=== PATIENT | male | born 1960 | race Caucasian/White ===

== ENCOUNTER → 2016-06-17 08:02 | Outpatient (CLI) | payer OTHER ==
[2015-02-22 14:54] VITALS: BMI 33.6
[~2016-06-17 08:02] MED LIST: ALDACTONE100 MG PO; ASPIRIN EC81 M1 PO; LANOXIN250 MCG PO; LASIX20 MG PO; LISINOPRIL5 MG PO; METOPROLOL TART50 MG PO; MIRALAX17 GM PO; TIAZAC/CARDIZE180 MG PO
== END | disposition home or self-care (01) ==
LOC: D.US 08:02
DX: K70.2 Alcoholic fibrosis and sclerosis of liver (principal)

== ENCOUNTER 2017-04-25 00:22 | Observation (INO) | payer OTHER ==
[~2017-04-25] VITALS: Ht 185.4 cm; Wt 112.8 kg
--- NOTE | ~2017-04-25 | HEMODYNAMI ---
PATIENT:JADA STEPHENS MEDICAL RECORD: [id number] : 56 [id number] ADMISSION DATE: 04/25/17 Generatedon:04/25/201710:14 Patient name: JADA STEPHENS Patient #: [id number] SSN: : 1960 Date of study: 04/25/2017 Page: Of Hemodynamic Procedure Report Patient Data Patient Demographics Procedure consent was obtained First Name: JADA Gender: Male Last Name: ANGELO : 1960 Middle Initial: M Age: 57 year(s) Patient #: [id number] Race: Unknown Additional ID: [id number] Contact details Address: [address] [place] [address] State: [place] City: [facility] Zip code: [address] Past Medical History Allergies: No known allergies Admission Admission Data Admission Date: 04/25/2017 Admission Time: 1:55 Room #: 2123 Height (in.): 70 BSA: 2.29 (m2) Height (cm.): 177.8 BMI: 35.87 (kg/m2) Weight (lbs.): 250 Weight (kg.): 113.4 Lab Results Lab Result Date: 04/25/2017 Lab Result Time: 4:52 Biochemistry Name Units Result Min Max BUN mg/dl 21 --(----)-* 7 18 Creatinine mg/dl 1 --(--*-)-- 0.6 1.3 CBC Name Units Result Min Max Hematocrit % 47.3 --(-*--)-- 42 54 Hemoglobin g/dl 16.2 --(--*-)-- 13.5 17.5 Procedure Procedure Types Cath Procedure Diagnostic Procedure [facility] w/Coronaries Miscellaneous Procedures Moderate Sedation up to 30 minutes Procedure Description Procedure Date Procedure Date: 04/25/2017 Procedure Start Time: 9:53 Procedure End Time: 10:13 Procedure Staff Name Function Irvin Smith MD Performing Physician Brian Camarena RT Scrub Jonah Salmon RN Nurse Ozzy Pennington RT Monitor Procedure Data Cath Procedure Fluoroscopy Diagnostic fluoroscopy Total fluoroscopy Time: 3.1 time: 3.1 min min Diagnostic fluoroscopy Total fluoroscopy dose: 965 dose: 965 mGy mGy Contrast Material Contrast Material Type Amount (ml) Isovue 300 87 Entry Location Entry Primary Successful Side Size Upsize Upsize Entry Closure Succes sful Closure Location (Fr) 1 (Fr) 2 (Fr) Remarks Device Remarks Femoral Right 5 Fr Exoseal artery Estimated blood loss: 10 ml Diagnostic catheters Device Type Used For End Catheter Placement Cordis 5Fr JL 4.0 Procedure Catheter (MP) Diagnostic Infinity 5Fr Procedure JL 5 catheter Cordis 5Fr 3DRC Catheter Procedure (MP) Cordis 5Fr Pigtail Procedure Catheter (MP) Procedure Complications No complications Procedure Medications Medication Administration Route Dosage Oxygen NC 2 l/min Heparin Flush Bag added to field 2 bags (1000units/500ml NS) 0.9% NaCl I.V. 100 ml/hr Versed I.V. 2 mg Hemodynamics Rest BSA: 2.29 (m2) HGB: 16.2 (g/dl) O2 Consumption: Estimated: 292.13 (ml/min) O2 Co nsumption indexed: Estimated:127.57 (ml/min/m) Heart Rate: 96 (bpm) Pressure Samples Time Site Value (mmHg) Purpose Heart Use Rate(bpm) 10:06 LV 118/16,16 EDP 110 10:06 LV 103/15,18 Snapshot 99 Gradients Valve Time Site Site Mean SEP/DFP Peak To Heart Use 1 2 (mmHg) (sec/min) Peak Rate (mmHg) (bpm) Aortic 10:07 LV AO 102 Snapshots Pre Cath Intra NCS Post Cath Vital Signs Time Heart Resp SPO2 etCO2 NIBP Rhythm Pain Sedation Rate (ipm) (%) (mmHg) (mmHg) Status Level (bpm) 9:35:32 107 18 96 37.1 112/74(98) NSR 0 (11) 10(A) , No pain 9:40:07 96 16 98 17.4 106/71(89) NSR 0 (11) 10(A) , No pain 9:44:37 92 16 99 38.5 116/76(88) NSR 0 (11) 10(A) , No pain 9:49:12 115 17 99 32.5 114/73(85) NSR 0 (11) 10(A) , No pain 9:53:46 107 17 96 42.3 105/68(95) NSR 0 (11) 9(A) , No pain 9:58:22 115 16 96 33.2 110/69(84) NSR 0 (11) 9(A) , No pain 10:02:55 90 17 98 33.2 124/69(83) NSR 0 (11) 9(A) , No pain 10:08:08 100 14 97 39 111/74(89) NSR 0 (11) 9(A) , No pain 10:11:43 101 19 100 30.2 117/67(84) NSR 0 (11) 9(A) , No pain Medications Time Medication Route Dose Verified Delivered Reason Notes Effect iveness by by 9:35:45 Oxygen NC 2 Irvin Jonah Per l/min Luis Salmon RN physician 9:35:55 Heparin Flush added 2 Irvin Jonah used for Bag to bags Luis Salmon RN procedure (1000units/500ml field NS) 9:36:03 0.9% NaCl I.V. 100 Irvin Jonah Per ml/hr Luis Salmon RN physician 9:50:50 Versed I.V. 2 mg Irvin Jonah for Luis Salmon RN sedation MD Procedure Log Time Note 9:15:35 Ozzy Pennington RT(R) sent for patient. Start room use. 9:26:35 Informed consent obtained and on chart 9:27:33 Diagnostic Cath status Elective 9:27:46 Time tracking: Call back 9:27:50 Plan of Care:Hemodynamics will remain stable., Cardiac rhythm will remain stable., Comfort level will be maintained., Respiratory function will remain adequate., Patient/ family verbilizes understanding of procedure., Procedure tolerated without complication., Recovers from procedure without complications.. 9:28:23 H&P Date Dictated: 04/25/2017 Within 30 days and on chart.. 9:29:13 Lab Result : Creatinine 1 mg/dl 9:29:13 Lab Result : BUN 21 mg/dl 9:29:13 Lab Result : Hemoglobin 16.2 g/dl 9:29:13 Lab Result : Hematocrit 47.3 % 9:29:17 Lab results completed and on chart. 9:29:22 Patient received from Med II to CCL 1 Alert and oriented. Tansferred to table in Supine position. 9:29:23 Warm blankets applied, and dada hugger turned on for patient comfort. 9:29:23 Correct patient and procedure confirmed by team. 9:29:24 ECG and BP/O2 sat monitors applied to patient. 9:29:25 Pre-procedure instructions explained to patient. 9:29:25 Pre-op teaching completed and patient verbalized understanding. 9:29:43 Patient allergic to No known allergies 9:34:44 Vital chart was started 9:35:45 Oxygen 2 l/min NC was administered by Jonah Salmon RN; Per physician; 9:35:55 Heparin Flush Bag (1000units/500ml NS) 2 bags added to field was administered by Jonah Salmon RN; used for procedure; 9:36:03 0.9% NaCl 100 ml/hr I.V. was administered by Jonah Salmon RN; Per physician; 9:37:02 Baseline sample Acquired. 9:37:08 Rhythm: atrial fibrillation 9:37:09 Full Disclosure recording started 9:37:13 Is the patient allergic to Iodine/contrast media? No. 9:37:15 Is patient on blood thinner?Yes 9:37:17 ACC The patient was administered the following blood thiners within the last 24 hours: ACCPlavix 9:37:20 Patient diabetic? No. 9:37:22 Previous problem with sedation/anesthesia? No ? 9:37:24 Snore? Yes 9:37:25 Sleep apnea? No 9:37:27 Deviated septum? No 9:37:28 Opens mouth fully? Yes 9:37:29 Sticks out tongue? Yes 9:37:30 Airway obstruction? No ? 9:37:33 Dentures? No ? 9:37:42 Pre procedure: right dorsailis pedis pulse 1+ Palpable, but thready & weak; easily obliterated 9:38:03 Unable to go radial due IV in right wrist. 9:38:10 IV patent on arrival in right wrist with 0.9% NaCl at KVO. 9:38:14 Right groin area was prepped with chlora-prep and draped in sterile fashion 9:38:15 Alarms reviewed by RKaveh NKaveh 9:38:16 Sharps counted by scrub and verified by R.N. 9:38:19 Use device set Femoral Dx 9:38:21 Tegaderm 4 x 4 opened to sterile field. 9:38:22 Acist Hand Control opened to sterile field. 9:38:23 Acist Manifold opened to sterile field. 9:38:24 Acist Syringe opened to sterile field. 9:38:25 Bag Decanter opened to sterile field. 9:38:25 Medline Cath Pack opened to sterile field. 9:38:25 Terumo 5Fr Mcgehee Sheath opened to sterile field. 9:38:26 St Neil 260cm J .035 wire opened to sterile field. 9:38:27 Diagnostic Infinity 5Fr Multipack catheter opened to sterile field. 9:38:40 Soccer Manager 4Fr Micropuncture ([id number]) opened to sterile field. 9:43:48 Physician paged 9:49:49 --------ALL STOP TIME OUT------ 9:49:50 Final Timeout: patient, procedure, and site verified with staff and physician. All members of the team are in agreement. 9:49:52 Right groin site verified by team. 9:49:56 Physical assessment completed. ASA score P 2 - A patient with mild systemic disease as per Irvin Smith MD. 9:50:01 Sedation plan: IV Moderate Sedation Versed, Fentanyl 9:50:50 Versed 2 mg I.V. was administered by Jonah Salmon RN; for sedation; 9:52:54 Procedure started. 9:53:00 Local anesthetic to right femoral artery with Lidocaine 2% by Irvin Smith MD.INITIAL ACCESS ONLY 9:54:47 Access obtained with 4Fr micropunture. 9:55:01 A 5 Fr sheath was inserted into the Right Femoral artery 9:55:58 A Cordis 5Fr JL 4.0 Catheter (JESSICA) was advanced over the wire and used for Procedure. 9:56:51 Catheter removed. unable to cannulate vessel. 9:57:04 A Diagnostic Infinity 5Fr JL 5 catheter was advanced over the wire and used for Procedure. 9:58:01 Patient Height : 70 inches 9:58:06 Patient Weight : 250 lbs 9:59:02 LCA angiography performed. 10:00:25 Catheter exchanged over wire. 10:01:46 A Cordis 5Fr 3DRC Catheter (MP) was advanced over the wire and used for Procedure. 10:02:24 RCA angiography performed. 10:04:33 DAVIS angiography performed. 10:04:36 Catheter exchanged over wire. 10:06:07 A Cordis 5Fr Pigtail Catheter (MP) was advanced over the wire and used for Procedure. 10:06:55 LV hemodynamics recorded. 10:06:59 LV angiography performed. 10:07:00 LV gram done using ROBERTS 10:07:04 Injector settings: Ml/sec: 12, Volume: 15, 10:07:26 EF : 35 % 10:07:33 Catheter removed. 10:07:44 Cordis 5Fr Exoseal opened to sterile field. 10:08:27 Sheath removed intact; hemostasis achieved with Exoseal to the Right Femoral artery. 10:08:30 Procedure ended.(Physican Out) 10:09:05 Fluoroscopy time 03.10 minutes. 10:09:10 Fluoroscopy dose: 965 mGy 10:09:10 Flurop Dose total: 965 10:10:17 Contrast amount:Isovue 300 87ml. 10:10:21 Sharps counted by scrub and verified by R.N. 10:10:25 Insertion/operative site no bleeding no hematoma. 10:10:27 Post-op/insertion site Right Femoral artery dressed using a 4 x 4 and Tegaderm. 10:10:31 Post Procedure Pulses reassessed and unchanged 10:10:34 Post-procedure physical assessment completed. ASA score P 2 - A patient with mild systemic disease as per Irvin Smith MD. 10:10:36 Post procedure rhythm: unchanged. 10:10:39 Estimated blood loss: 10 ml 10:10:41 Post procedure instruction explained to patient.Patient verbalizes understanding. 10:10:42 Patient needs reinforcement of post procedure teaching. 10:10:52 Procedure type changed to Cath procedure, Diagnostic procedure, LHC, LHC w/Coronaries, Miscellaneous Procedures, Moderate Sedation up to 30 minutes 10:10:54 Procedure and supply charges have been captured, reviewed, submitted and are correct. 10:10:58 Procedure Complication : No complications 10:13:12 Vital chart was stopped 10:13:13 See physician's report for complete and final results. 10:13:17 Report given to PCU. 10:13:21 Patient transfered to PCU with Bed. 10:13:24 Procedure ended. 10:13:24 Full Disclosure recording stopped 10:13:30 End room use (Document Last) Device Usage Item Name Manufacture Quantity Catalog Hospital Part Current Minimal Lot# / Number Charge Number Stock Stock Serial# Code Tegaderm 4 x 3M 1 [id number] 707272 297465 998174 5 4 Acist Hand Acist 1 48371 117650 616568 614331 5 Control [employer] Inc Acist Acist 1 19682 861609 662413 684518 5 Manifold Medical [employer] Inc Acist Syringe Acist 1 44926 468495 999111 039503 20 Medical Systems Inc Bag Decanter Microtek 1 2002S 299092 84024 726998 5 Medical Inc. Medline Cath Cardinal 1 [id number] 771756 75788 868583 5 Pack Health Terumo 5Fr Terumo 1 [id number] 259432 911220 556839 [address] Neil [address] St Neil 1 072151 169083 723061 408687 30 J .035 wire Diagnostic Cardinal 1 [id number] 262755 38408 973544 30 Infinity 5Fr Health Multipack catheter Cook 4Fr Cook Medical 1 [id number] 861509 911669 899388 5 Micropuncture ([id number]) Cordis 5Fr JL Cardinal 1 724822 5 4.0 Catheter Health (MP) Diagnostic Cardinal 1 [id number] 148391 124138 876780 5 Infinity 5Fr Health JL 5 catheter Cordis 5Fr Cardinal 1 320095 5 3DRC Catheter Health (MP) Cordis 5Fr Cardinal 1 246394 5 Pigtail Health Catheter (MP) Cordis 5Fr Cardinal 1 EX500 233277 813725 462702 10 CoPromote Signature Audit Foley Stage Time Signature Unsigned Intra-Procedure 04/25/2017 Ozzy Pennington 10:14:12 AM RT(R) Signatures Monitor : Ozzy Pennington RT Signature : Date : Time : [id number] [place] [address]
[2017-04-25 00:55] LABS: BASOPHILS 0.4 % (0-2); EOSINOPHILS 2.2 % (0-7); HEMATOCRIT 49.2 % (42.0-54.0); HEMOGLOBIN 17.3 g/dL (13.5-17.5); IMMATURE GRANULOCYTES 0.1 % (0-5); LYMPHOCYTES 49.3 % (15-50); MCH 34.3 pg (26.0-34.0); MCHC 35.2 g/dL (31.0-37.0); MCV 97.4 fL (80.0-100.0); MEAN PLATELET VOLUME 11.7 fL (7.4-10.4); MONOCYTES 8.9 % (2-11); NEUTROPHILS 39.1 % (40-80); RBC 5.05 10x6/uL (4.20-6.10); RDW 12.4 % (11.5-14.5); WBC 8.3 10x3/uL (4.8-10.8)
[2017-04-25 00:56] LABS: PLATELET COUNT 146 10x3/uL (130-400)
[2017-04-25 01:04] LABS: APTT 25.7 SECONDS (22.8-39.4); INR 0.92 (0.85-1.17); PROTIME 12.2 SECONDS (11.6-15.0)
[2017-04-25 01:05] LABS: D-DIMER-QUANTITATIVE 0.68 ug/mLFEU (0.20-0.54)
[2017-04-25 01:22] LABS: ALBUMIN 3.3 g/dL (3.4-5.0); ALKALINE PHOSPHATASE 63 U/L (46-116); ALT (SGPT) 161 U/L (10-68); AMYLASE - SERUM 34 U/L (25-115); BILIRUBIN - TOTAL 0.43 mg/dL (0.2-1.3); CALC OSMOLALITY 286 mosm/kg (275-300); CALCIUM 9.5 mg/dL (8.5-10.1); CARBON DIOXIDE 28.8 mmol/L (21.0-32.0); CHLORIDE - SERUM 103 mmol/L (98-107); CKMB 2.4 U/L (0.0-3.6); CREATININE - SERUM 1.2 mg/dL (0.6-1.3); GLUCOSE 119 mg/dL (74-106); LIPASE 98 U/L (73-393); POTASSIUM - SERUM 3.9 mmol/L (3.5-5.1); PRO BNP 388 pg/mL (0-125); PROTEIN - SERUM 7.1 g/dL (6.4-8.2); SODIUM 142 mmol/L (136-145); UREA NITROGEN 20 mg/dL (7-18); eGFR NON AFRICAN AMERICAN 66 mL/min (90-120)
[2017-04-25 01:24] LABS: TROPONIN-I 0.091 ng/mL (0.000-0.060)
--- NOTE | 2017-04-25 02:55 | NUR ---
PT ARRIVES VIA WC FROM ER ACCOMPANIED BY ER NURSE. ASSISTED INTO BED, PLACED ON TELEMETRY, A-FIB ON TELE, HR 90'S TO LOW 100'S. ADMISSION ASSESSMENT AND HISTORY COMPLETED, VSS, AFEBRILE. C/O PAIN UPON ARRIVAL - MORPHINE 4 MG AND ZOFRAN 4 MG IV GIVEN @ 0307. SOME IMMEDIATE RELIEF FROM PAIN AFTER 5 MIN REPORTED BY PT. NO NEEDS VOICED. CALL LIGHT IN PLACE. WILL CONT TO MONITOR.
[2017-04-25] MEDS ORDERED: FLUTICASONE PRO16 GM NASAL (03:00)
[2017-04-25] MEDS ORDERED: CLARITIN 10 MG10 MG PO (03:00)
[2017-04-25] MEDS ORDERED: TRAZODONE HCL50 MG PO (03:01)
[2017-04-25] MEDS ORDERED: ZEBETA5 MG PO (03:01)
[2017-04-25 03:11] VITALS: BP 156/57; Ht 185.4 cm; Wt 112.8 kg
[2017-04-25 04:00] VITALS: BP 156/57
--- NOTE | 2017-04-25 05:30 | NUR ---
PT RESTING WELL THIS SHIFT WITHOUT C/O OR DISTRESS NOTED. CALL LIGHT WITHIN REACH. WILL CONT TO MONITOR.
--- NOTE | 2017-04-25 07:53 | NUR ---
INTRODUCED MYSELF TO PT PRIMARY RN FOR TODAYS SHIFT. PT A&O BUT VERY POOR HISTORIAN AND CANT REMEMBER HIS ACTUAL HEART HX OR CURRENT MEDS. PT CURRENTLY IN CONTROLLED A.FIB IN KIERRA 80S. RR NONLABORED ON RA. PT DENIES ANY CURRENT CHEST PAIN AND STATED IT RESOLVED SINCE LAST DOSE OF MORPHINE, WILL TRY TO HOLD OFF ON MORPHINE TO SEE IF IT IS MAKING HIS MEMORY GROGGY. PT REC'D HIGH DOSE 600MG PLAVIX PER AND TEACHING WAS PROVIDED. PT WILL REMAIN NPO AT THIS TIME AND WE WILL CTM.
[2017-04-25 08:18] LABS: BASOPHILS 0.1 % (0-2); EOSINOPHILS 0.9 % (0-7); HEMATOCRIT 47.3 % (42.0-54.0); HEMOGLOBIN 16.2 g/dL (13.5-17.5); IMMATURE GRANULOCYTES 0.3 % (0-5); LYMPHOCYTES 23.4 % (15-50); MCH 33.8 pg (26.0-34.0); MCHC 34.2 g/dL (31.0-37.0); MCV 98.7 fL (80.0-100.0); MEAN PLATELET VOLUME 14.2 fL (7.4-10.4); MONOCYTES 7.5 % (2-11); NEUTROPHILS 67.8 % (40-80); PLATELET COUNT 139 10x3/uL (130-400); RBC 4.79 10x6/uL (4.20-6.10); RDW 12.4 % (11.5-14.5); WBC 7.5 10x3/uL (4.8-10.8)
[2017-04-25 08:22] LABS: CALC OSMOLALITY 287 mosm/kg (275-300); CALCIUM 8.9 mg/dL (8.5-10.1); CARBON DIOXIDE 27.6 mmol/L (21.0-32.0); CHLORIDE - SERUM 105 mmol/L (98-107); GLUCOSE 134 mg/dL (74-106); SODIUM 142 mmol/L (136-145); UREA NITROGEN 21 mg/dL (7-18); eGFR NON AFRICAN AMERICAN 81 mL/min (90-120)
[2017-04-25 08:23] LABS: POTASSIUM - SERUM 4.5 mmol/L (3.5-5.1)
--- NOTE | 2017-04-25 09:24 | NUR ---
PRE-OP COMPLETED AND CONSENTS OBTAINED FOR HEART CATH. CATH TEAM AT BEDSIDE PROVIDING TEACHING THIS IS PTS FIRST CATH SO HE THINKS. NO FURTHER NEEDS. WILL CPOC.
--- NOTE | 2017-04-25 10:30 | NUR ---
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 RR NONLABORED WITH NC @2L IN PLACE. VSS AT 110/74 HR 80 PULSE OX 99% AND TEMP 98.3. PT IS LYING FLAT AND VERBALIZED UNDERSTANDING TO REMAIN FLAT X2 HOURS. WOODY DRSG IS CDI AND NO S/S OF BLEEDING OR HEMATOMA NOTED. PERIPHERAL PULSES INTACT. PT DENIES ANY CURRENT NEEDS. WILL CTM.
--- NOTE | 2017-04-25 11:52 | NUR ---
PT LYING QUIETLY IN BED RESTING FLAT. VSS AND STILL BEING MONITERED. WOODY DRSG CDI AND NO S/S OF BLEEDING OR HEMATOMA NOTED. PT STATES "IM HUNGRY" LUNCH HAS BEEN ORDERED NO FURTHER NEEDS AT THIS TIME. WILL CPOC.
--- NOTE | 2017-04-25 12:32 | NUR ---
2 HOUR LAY COMPLETE. R.GROIN DRSG CDI AND NO S/S OF HEMATOMA OR BLEEDING NOTED. ASSISTED PT UP IN BED AND VSS. WILL CPOC.
--- NOTE | 2017-04-25 12:37 | NUR ---
PT LEAVING FOR XRAY.
--- NOTE | 2017-04-25 12:50 | NUR ---
PT BACK IN HIS ROOM AND SITTING UP IN BED. PT DENIES ANY FURTHER CP AT THIS TIME AND WOULD LIKE TO REST. CL IN REACH, BED IN LOWEST, SIDE RAILS X2. WILL CPOC.
--- NOTE | 2017-04-25 14:54 | NUR ---
URINE SAMPLE COLLECTED AND BROUGHT TO LAB.
[2017-04-25 15:33] LABS: APPEARANCE CLEAR (CLEAR); BILIRUBIN NEGATIVE (NEGATIVE); COLOR YELLOW (YELLOW); GLUCOSE NEGATIVE (NEGATIVE); KETONE NEGATIVE (NEGATIVE); NITRITE NEGATIVE (NEGATIVE); PROTEIN NEGATIVE (NEGATIVE); SPECIFIC GRAVITY 1.015 (1.005-1.020); UROBILINOGEN NORMAL (NORMAL)
[2017-04-25 15:36] LABS: UDS - AMPHET NEGATIVE QUAL (NEGATIVE); UDS - BARB NEGATIVE QUAL (NEGATIVE); UDS - BENZO POSITIVE QUAL (NEGATIVE); UDS - COCAINE POSITIVE QUAL (NEGATIVE); UDS - OPIATE POSITIVE QUAL (NEGATIVE); UDS - PCP NEGATIVE QUAL (NEGATIVE); UDS - THC POSITIVE QUAL (NEGATIVE)
[2017-04-25 16:12] VITALS: BP 141/90
--- NOTE | 2017-04-25 17:15 | NUR ---
PT SITTING UP IN BED EATING DINNER WITH AT BEDSIDE. RR NONLABORED ON RA. MCKAY DRSG CDI AND NO S/S OF HEMATOMA OR BLEEDING NOTED. PERIPHERAL PULSES INTACT. NO FURTHER NEEEDS AT THIS TIME. WILL CPOC.
[2017-04-25 19:00] VITALS: BP 146/84
[2017-04-26 00:38] VITALS: BP 157/88
--- NOTE | 2017-04-26 02:06 | NUR ---
PT RESTING SOUNDLY WITHOUT C/O OR DISTRESS NOTED. NO NEEDS VOICED. WILL CONT TO MONITOR.
[2017-04-26 04:24] VITALS: BP 159/96
[2017-04-26 05:35] LABS: BASOPHILS 0.1 % (0-2); EOSINOPHILS 1.2 % (0-7); HEMATOCRIT 50.2 % (42.0-54.0); HEMOGLOBIN 16.9 g/dL (13.5-17.5); IMMATURE GRANULOCYTES 0.2 % (0-5); LYMPHOCYTES 24.1 % (15-50); MCH 33.2 pg (26.0-34.0); MCHC 33.7 g/dL (31.0-37.0); MCV 98.6 fL (80.0-100.0); MEAN PLATELET VOLUME 12.2 fL (7.4-10.4); MONOCYTES 11.1 % (2-11); NEUTROPHILS 63.3 % (40-80); PLATELET COUNT 132 10x3/uL (130-400); RBC 5.09 10x6/uL (4.20-6.10); RDW 12.1 % (11.5-14.5); WBC 9.1 10x3/uL (4.8-10.8)
[2017-04-26 05:42] LABS: CALC OSMOLALITY 280 mosm/kg (275-300); CALCIUM 8.9 mg/dL (8.5-10.1); CHLORIDE - SERUM 103 mmol/L (98-107); CREATININE - SERUM 0.9 mg/dL (0.6-1.3); GLUCOSE 113 mg/dL (74-106); POTASSIUM - SERUM 4.5 mmol/L (3.5-5.1); SODIUM 140 mmol/L (136-145); UREA NITROGEN 15 mg/dL (7-18); eGFR NON AFRICAN AMERICAN > 90 mL/min (90-120)
[2017-04-26 08:00] VITALS: BP 144/79
--- NOTE | 2017-04-26 09:46 | NUR ---
[facility] MCMULLEN GAVE ADMINISTRATIVE APPROVAL FOR TRANSFER TO [facility].
[2017-04-26 11:28] LABS: CHOL - HDL RATIO 6.3 ratio (2.3-4.9); LDL-HDL RATIO 4.4 ratio (1.5-3.5)
[2017-04-26 12:00] VITALS: BP 137/79
[2017-04-26 17:21] VITALS: BP 92/56
--- NOTE | 2017-04-26 19:38 | NUR ---
RCVD CALL THAT ROOM IS AVAILABLE FOR PT AT [facility]. CALLED [phone] AND GAVE REPORT. PT IS TO GO TO ROOM 916. GETTING D/C PAPERS SIGNED. WILL CALL AMBULANCE.
--- NOTE | 2017-04-26 19:50 | NUR ---
CALLED [facility]. STATED THEY WOULD HAVE AN AMBULANCE UP HERE IN ABOUT 45 MINS TO TRANSFER PT TO [facility] [place] ROOM 916. WILL INFORM PT.
--- NOTE | 2017-04-26 20:22 | NUR ---
PT PICKED UP BY [facility]. BEING TRANSPORTED TO [facility] IN [place]. BREATHING EVEN AND UNLABORED.
== END 2017-04-26 20:20 | disposition short-term general hospital (02) ==
LOC: D.ER 00:22 → D.M2 01:55 → OBSVTIME 01:55 → D.M2 01:55
PROVIDERS: Emergency Medicine; Family Medicine; Internal Medicine Cardiovascular Disease; ADMIT Emergency Medicine
DX: I21.4 Non-ST elevation (NSTEMI) myocardial infarction (principal); I25.119 Atherosclerotic heart disease of native coronary artery with unspecified angina pectoris; Z95.5 Presence of coronary angioplasty implant and graft; I10 Essential (primary) hypertension; J44.9 Chronic obstructive pulmonary disease, unspecified; I48.91 Unspecified atrial fibrillation; Z72.0 Tobacco use; I25.5 Ischemic cardiomyopathy

== ENCOUNTER → 2018-08-31 09:27 | Outpatient (CLI) | payer MEDICAID ==
[2017-04-25 03:11] VITALS: BMI 32.9
[~2018-08-31 09:27] MED LIST changes: +CLARITIN 10 MG10 MG PO; +FLUTICASONE PRO16 GM NASAL; +TRAZODONE HCL50 MG PO; +ZEBETA5 MG PO
--- NOTE | 2018-09-04 10:39 | EC ---
PATIENT:JADA STEPHENS DATE OF SERVICE: 08/31/18 SEX: M MEDICAL RECORD: [id number] DATE OF : 56 LOCATION:D[facility] AGE OF PATIENT: 58 ADMISSION DATE: 08/31/18 REFERRING PHYSICIAN: INTERPRETING PHYSICIAN: AZAR PHILLIPS MD ECHOCARDIOGRAM REPORT ECHO CHARGES 4 ECHO COMPLETE Date: 08/31/18 CLINICAL DIAGNOSIS: CARDIOMYOPATHY, HX OF CABG/A FIB ECHOCARDIOGRAPHIC MEASUREMENTS (adult normal given) AC root (d.<3.7cm) 4.3 cm LV Septum d (<1.2 cm> 1.5 cm Valve Excursion 2.0 cm LV Septum (systole) 1.6 cm Left Atria (s.<4.0cm> 4.6 cm LVPW d(<1.2cm) 1.4 cm RV (d.<2.3cm) 4.6 cm LVPW (sytole) 1.7 cm LV diastole(<5.6CM) 6.1 cm MV E-F(>70mm/sec) cm LV systole 5.4 cm LVOT Diameter 1.8 cm MV exc.(>10mm) 1.3 cm Est.ejection fraction (50-75%) % DOPPLER: LVIT cm/sec A 82.0 cm/sec E cm/sec LA cm/sec RVSP 40 mmHg LVOT 106 cm/sec AOP1/2T m/s Asc. Ao 125 cm/sec RVOT 60 cm/sec RA cm/sec PA 75 cm/sec AV Gradient Peak 4.50 mmHg AV Mean 2.34 mmHg AV Area 2.9 cm MV Gradient Peak 3.98 mmHg MV Mean 1.84 mmHg MV Area cm COMMENTS: Mosaic Tile Maker: 2 ROYAL MERCER Target Aircraft Controller: 3 Dr. Muhammad TAPE# PACS Pericardial Effusion N DATE OF SERVICE: Adequate 2-D echo, color flow and spectral Doppler, and M-mode. No LVH. LV internal dimensions are dilated. LV is mildly globally hypo with reduced EF, estimated EF 25% to 30%. Aortic valve sclerosis without stenosis by Doppler interrogation. Left atrium dilated at 4.6 cm. Mitral valve shows no prolapse. Mild MR. Right-sided chamber is grossly normal. Mild TR. TRANSINT:[id number] Voice Confirmation ID: [id number] DOCUMENT ID: [id number] ECHOCARDIOGRAM REPORT [id number] JADA STEPHENS,AZAR Leija MD at 1039 CC: [id number] DICTATION DATE: 09/01/18 1304 ADMINISTRATIVE SECRETARY: 09/01/18 1417 DEP CLI 08/31/18 [id number] [place] [address]
== END | disposition home or self-care (01) ==
LOC: D.HCCARDIO 09:27
PROVIDERS: ATTEND Internal Medicine Interventional Cardiology
DX: I42.9 Cardiomyopathy, unspecified (principal)

== ENCOUNTER 2019-08-23 11:43 | Outpatient (CLI) | payer MEDICAID ==
[~2019-08-23] VITALS: Ht 193 cm; Wt 118.2 kg
--- NOTE | ~2019-08-23 | HEMODYNAMI ---
PATIENT:JADA STEPHENS MEDICAL RECORD: [id number] : 56 LOCATION:D.CAT ADMISSION DATE: 08/23/19 Generatedon:08/23/201915:10 Patient name: JADA STEPHENS Patient #: [id number] SSN: : 1960 Date of study: 08/23/2019 Page: Of Hemodynamic Procedure Report Patient Data Patient Demographics Procedure consent was obtained First Name: JADA Gender: Male Last Name: ANGELO : 1960 Middle Initial: M Age: 59 year(s) Patient #: [id number] Race: Unknown Additional ID: [id number] Contact details Address: [address] [place] [address] State: [place] City: [facility] Zip code: [address] Past Medical History Allergies: No known allergies Admission Admission Data Admission Date: 08/23/2019 Admission Time: 11:43 Arrival Date: 08/23/2019 Arrival Time: 0:00 Admit Source: Other Insurance Payor: Medicaid [facility] #: [id number] Height (in.): 76 BSA: 2.48 (m2) Height (cm.): 193.04 BMI: 31.71 (kg/m2) Weight (lbs.): 260.54 Weight (kg.): 118.18 Lab Results Lab Result Date: 08/23/2019 Lab Result Time: 0:00 Biochemistry Name Units Result Min Max BUN mg/dl 20 --(----)*- 7 18 Creatinine mg/dl 1 --(--*-)-- 0.6 1.3 eGFR ml/min 81 *-(----)-- 90 120 NONAFRICAN CBC Name Units Result Min Max Hematocrit % 49.7 --(--*-)-- 42 54 Hemoglobin g/dl 17.6 --(----)*- 13.5 17.5 Procedure Procedure Types Cath Procedure Peripheral Cath Diagnostic Procedure Senior Contracts Manager Peripheral Procedures AFRO (Diagnostic) Procedure Description Procedure Date Procedure Date: 08/23/2019 Procedure Start Time: 14:57 Procedure End Time: 15:09 Procedure Staff Name Function Joseph Caicedo MD Performing Physician Merari Rosales RT Monitor Gely Orantes RT Scrub Hector Torrez RN Nurse Procedure Data Cath Procedure Fluoroscopy Diagnostic fluoroscopy Total fluoroscopy Time: 0.5 time: 0.5 min min Diagnostic fluoroscopy Total fluoroscopy dose: 192 dose: 192 mGy mGy Contrast Material Contrast Material Type Amount (ml) Isovue 300 74 Entry Location Entry Primary Successful Side Size Upsize Upsize Entry Closure Succes sful Closure Location (Fr) 1 (Fr) 2 (Fr) Remarks Device Remarks Femoral Right 5 Fr Exoseal artery Estimated blood loss: 5 ml Diagnostic catheters Device Type Used For End Catheter Placement DIAGNOSTIC UF 5Fr Abdominal catheter ([id number]) aortogram with runoff Procedure Complications No complications Procedure Medications Medication Administration Route Dosage 0.9% NaCl I.V. 100 ml/hr Oxygen etCO2 Nasal cannula 2 l/min Heparin Flush Bag added to field 2 bags (1000units/500ml NS) Lidocaine 2% added to field ml Versed I.V. 2 mg Fentanyl I.V. 100 mcg Hemodynamics Rest BSA: 2.48 (m2) HGB: 17.6 (g/dl) O2 Consumption: Estimated: 320.65 (ml/min) O2 Co nsumption indexed: Estimated:129.29 (ml/min/m) Heart Rate: 102 (bpm) Snapshots Pre Cath Intra NCS Post Cath Vital Signs Time Heart Resp SPO2 etCO2 NIBP Rhythm Pain Sedation Rate (ipm) (%) (mmHg) (mmHg) Status Level (bpm) 14:48:21 110 24 94 26.2 106/77(91) A-Fib 0 (11) 10(A) , No pain 14:52:26 119 21 96 0 94/74(88) A-Fib 0 (11) 10(A) , No pain 14:56:30 111 16 98 12.7 108/69(78) A-Fib 0 (11) 10(A) , No pain 15:00:34 101 20 93 32.2 99/76(92) A-Fib 0 (11) 10(A) , No pain 15:05:33 116 18 84 0 Measuring A-Fib 0 (11) 10(A) , No pain 15:05:43 103 18 86 5.2 110/66(89) A-Fib 0 (11) 10(A) , No pain Medications Time Medication Route Dose Verified Delivered Reason Notes Eff ectiveness by by 14:46:38 0.9% NaCl I.V. 100 Hector Hector Per ml/hr Shan Torrez physician RN RN 14:46:49 Oxygen etCO2 2 Hector Hector for low 02 Nasal l/min Suyapaigan Shan sats cannula RN RN 14:46:59 Heparin Flush added 2 Hector Hector used for Bag to bags Lorigan Shan procedure (1000units/500ml field RN RN NS) 14:47:10 Lidocaine 2% added ml Hector Hector for local to Lorigan Lorigan anesthetic field RN RN 14:57:41 Versed I.V. 2 mg Hector Hector for Lorigan Lorigan sedation RN RN 14:57:49 Fentanyl I.V. 100 Hector Hector for mcg Lorigan Lorigan sedation RN shrinking machine operator Log Time Note 14:35:52 Diagnostic Cath Status : Elective 14:35:57 Admit Source: Other 14:36:02 Procedure Status Peripheral. 14:36:03 Hector Torrez RN sent for patient. Start room use. 14:36:14 Time tracking: Regular hours (M-F 7:00 - 5:00) 14:36:18 Plan of Care:Hemodynamics will remain stable., Cardiac rhythm will remain stable., Comfort level will be maintained., Respiratory function will remain adequate., Patient/ family verbilizes understanding of procedure., Procedure tolerated without complication., Recovers from procedure without complications.. 14:36:30 H&P Date Dictated: 08/16/2019 Within 30 days and on chart.. 14:36:32 Pre-procedure instructions explained to patient. 14:36:32 Pre-op teaching completed and patient verbalized understanding. 14:36:34 Patient NPO since Midnight. 14:36:42 Lab results completed and on chart. 14:37:27 Lab Result : BUN 20 mg/dl 14:37:27 Lab Result : eGFR NONAFRICAN 81 ml/min 14:37:27 Lab Result : Creatinine 1 mg/dl 14:37:27 Lab Result : Hemoglobin 17.6 g/dl 14:37:27 Lab Result : Hematocrit 49.7 % 14:37:31 Alarms reviewed by Deborah Villarreal 14:37:31 Sharps counted by scrub and verified by Yevgeniy 14:37:36 Arrival Date: 08/23/2019 12:00:00 AM 14:37:39 Patient Height : 76 inches 14:37:44 Patient Weight : 260.54 lbs 14:37:54 Insurance Payor : Medicaid 14:38:17 Patient allergic to No known allergies 14:38:25 Patient received from Pre/Post Procedure Room to CCL 1 Alert and oriented. Tansferred to table in Supine position. 14:38:28 Signed procedure consent form obtained from patient. 14:38:29 Warm blankets applied, and dada hugger turned on for patient comfort. 14:38:29 Correct patient and procedure confirmed by team. 14:38:31 ECG and BP/O2 sat monitors applied to patient. 14:38:36 Family in waiting room. 14:46:38 0.9% NaCl 100 ml/hr I.V. was administered by Hector Torrez RN; Per physician; Verbal order read back and verified. 14:46:49 Oxygen 2 l/min etCO2 Nasal cannula was administered by Hector Torrez RN; for low 02 sats; Verbal order read back and verified. 14:46:59 Heparin Flush Bag (1000units/500ml NS) 2 bags added to field was administered by Hector Torrez RN; used for procedure; Verbal order read back and verified. 14:47:10 Lidocaine 2% ml added to field was administered by Hector Torrez RN; for local anesthetic; Verbal order read back and verified. 14:47:14 Vital chart was started 14:51:24 Baseline sample Acquired. 14:52:01 Rhythm: atrial fibrillation 14:52:04 Full Disclosure recording started 14:52:07 - 14:52:15 Is the patient allergic to Iodine/contrast media? No. 14:52:17 Was the patient premedicated? Yes 14:52:20 Is patient on blood thinner?Yes 14:52:25 ACC The patient was administered the following blood thiners within the last 24 hours: ACCPlavix 14:52:29 Patient diabetic? No. 14:52:40 ----Pre-sedation anethsthesia assessment.---- 14:52:44 Previous problem with sedation/anesthesia? No ? 14:52:47 Snore? Yes 14:52:50 Sleep apnea? Yes 14:52:53 Deviated septum? No 14:52:55 Opens mouth fully? Yes 14:52:57 Sticks out tongue? Yes 14:53:09 Airway obstruction? Yes copd/ cpap 14:53:14 Dentures? No ? 14:53:20 Pre procedure: right dorsailis pedis pulse Doppler 14:53:26 Pre procedure: left dorsailis pedis pulse Doppler 14:53:40 IV patent on arrival in right forearm with 0.9% NaCl at [facility]. 14:53:53 Bilateral groins area was prepped with chlora-prep and draped in steril e fashion 14:53:57 Physician arrived 14:53:58 --------ALL STOP TIME OUT------ 14:53:59 Final Timeout: patient, procedure, and site verified with staff and physician. All members of the team are in agreement. 14:54:02 Bilateral groins site verified by team. 14:54:10 Fire Safety Assessment: A--An alcohol-based skin anteseptic being used preoperatively., C--Open oxygen or nitrous oxide is being used., D--An ESU, laser, or fiber-optic light is being used. 14:54:16 Physical assessment completed. ASA score P 2 - A patient with mild systemic disease as per Joseph Caicedo MD. 14:54:24 2) 60-89 Mildly reduced kidney function, and other findings (as for stage 1) point to kidney disease. 14:54:29 Maximum allowable contrast dose (3.7 X eGFR X 0.75)225 ml. 14:54:35 Sedation plan: IV Moderate Sedation Medication:Versed, Fentanyl 14:54:44 Use device set Femoral Dx 14:54:45 ACIST Syringe (16005) opened to sterile field. 14:54:46 Bag Decanter (2002S) opened to sterile field. 14:54:47 Medline Cath Pack ([id number]) opened to sterile field. 14:54:48 ACIST Hand Control (07378) opened to sterile field. 14:54:49 ACIST Manifold (73255) opened to sterile field. 14:54:51 Tegaderm 4 x 4 (1626W) opened to sterile field. 14:54:55 SHEATH 5FR Naselle (FQM910) opened to sterile field. 14:54:56 EMERALD Guide Wire (669-079) opened to sterile field. 14:57:37 Procedure started. 14:57:41 Versed 2 mg I.V. was administered by Hector Torrez RN; for sedation; Verbal order read back and verified. 14:57:44 Local anesthetic to right femoral artery with Lidocaine 2% by Joseph Goncalves MD.INITIAL ACCESS ONLY 14:57:49 Fentanyl 100 mcg I.V. was administered by Hector Torrez RN; for sedation; Verbal order read back and verified. 14:59:08 A 5 Fr sheath was inserted into the Right Femoral artery 14:59:18 A DIAGNOSTIC UF 5Fr catheter ([id number]) was advanced over the wire and used for Abdominal aortogram with runoff. 15:00:24 ABDOMINAL AORTAGRAM WITH LEFT leg runoff performed@10 for 20. 15:01:08 Left leg runoff performed@10 for 20. 15:01:11 Right leg runoff performed@10 for 20. 15:02:16 Catheter removed. 15:02:31 EXOSEAL 5Fr (EX500) opened to sterile field. 15:02:56 Sheath removed intact; hemostasis achieved with Exoseal to the Right Femoral artery. 15:03:00 Procedure ended.(Physican Out) 15:04:35 Contrast amount:Isovue 300 74ml. 15:04:40 Maximum allowable dose exceeded? No. 15:04:49 Fluoroscopy time 00.50 minutes. 15:05:46 Flurop Dose total: 192 15:05:46 Fluoroscopy dose: 192 mGy 15:05:56 Dose Area Product 05599 mGy/cm. 15:05:58 Sharps counted by scrub and verified by R.N. 15:06:00 Insertion/operative site no bleeding no hematoma. 15:06:06 Post-op/insertion site Right Femoral artery dressed using a 4 x 4 and Tegaderm. 15:06:11 Post right femoral artery:stable 15:06:13 Post Procedure Pulses reassessed and unchanged 15:06:18 Post-procedure physical assessment completed. ASA score P 2 - A patient with mild systemic disease as per Joseph Caicedo MD. 15:06:21 Post procedure rhythm: unchanged. 15:06:25 Estimated blood loss: 5 ml 15:06:27 Post procedure instruction explained to patient.Patient verbalizes understanding. 15:06:29 Patient needs reinforcement of post procedure teaching. 15:07:16 Procedure and supply charges have been captured, reviewed, submitted an d are correct. 15:08:40 Procedure Complication : No complications 15:08:44 Vital chart was stopped 15:08:49 AFRO Findings: PVD: mild to moderate (<70%) 15:08:53 Operative report dictated upon procedure completion. 15:08:54 See physician's report for complete and final results. 15:08:56 Report given to Pre/Post Procedure Room. 15:09:00 Patient transfered to Pre/Post Procedure Room with Stretcher. 15:09:02 Procedure ended. 15:09:02 Full Disclosure recording stopped 15:09:05 End room use (Document Last) Device Usage Item Name Manufacture Quantity Catalog Hospital Part Current Minimal L ot# / Number Charge Number Stock Stock Serial# Code ACIST Acist 1 05440 [id number] 689865 641149 20 Syringe Medical (52322) Systems Inc Bag Microtek 1 2001S 963264 25472 059886 5 Decanter Medical Inc. () Medline Medline 1 [id number] 048995 64390 511978 5 Cath Pack ([id number]) ACIST Hand Acist 1 38187 293956 207354 332521 5 Control Medical (57717) Systems Inc ACIST Acist 1 18565 951582 952080 141503 5 Manifold Medical (47787) Systems Inc Tegaderm 4 3M 1 1626W 558700 273185 236882 5 x 4 (1626W) SHEATH 5FR Terumo 1 PGY583 293364 985594 993080 5 Naselle (TWC835) EMERALD Cardinal 1 502-455 281520 662830 527017 5 Guide Wire Health (502455) DIAGNOSTIC Cardinal 1 [id number] 037509 649537 235142 10 UF 5Fr Health catheter (677012T6) EXOSEAL 5Fr Cardinal 1 EX500 131329 558748 527207 10 (EX500) Health Signature Audit [place] Stage Time Signature Unsigned Intra-Procedure 08/23/2019 Merari 3:09:28 PM Connie RT(R) (CV) Intra-Procedure 08/23/2019 Hector 3:09:56 PM Shan NGUYEN Intra-Procedure 08/23/2019 Joseph Gonzales 3:10:21 PM Jada [id number] [place] [address]
[2019-08-23] MEDS ORDERED: PLAVIX75 MG PO (12:49)
[2019-08-23] MEDS ORDERED: LIPITOR40 MG PO (12:50)
[2019-08-23] MEDS ORDERED: CENTRUM MEN'S1 EACH PO (12:50)
[2019-08-23 13:13] VITALS: BP 141/76; Ht 193 cm; Wt 118.2 kg
[2019-08-23 13:25] LABS: BASOPHILS 0.1 % (0-2); EOSINOPHILS 1.1 % (0-7); HEMATOCRIT 49.7 % (42.0-54.0); HEMOGLOBIN 17.6 g/dL (13.5-17.5); IMMATURE GRANULOCYTES 0.3 % (0-5); LYMPHOCYTES 38.6 % (15-50); MCH 33.3 pg (26.0-34.0); MCHC 35.4 g/dL (31.0-37.0); MCV 94.1 fL (80.0-100.0); MEAN PLATELET VOLUME 11.6 fL (7.4-10.4); MONOCYTES 10.8 % (2-11); NEUTROPHILS 49.1 % (40-80); RBC 5.28 10x6/uL (4.20-6.10); RDW 12.7 % (11.5-14.5); WBC 7.4 10x3/uL (4.8-10.8)
[2019-08-23] MEDS ORDERED: LIPITOR80 MG PO (13:37)
[2019-08-23] MEDS ORDERED: AMITRIPTYLINE100 MG PO (13:37)
[2019-08-23] MEDS ORDERED: TOPROL XL50 MG PO (13:37)
[2019-08-23] MEDS ORDERED: ENTRESTO 24 MG1 EACH PO (13:37)
[2019-08-23 13:45] LABS: ALT (SGPT) 166 U/L (10-68); CALC OSMOLALITY 281 mosm/kg (275-300); CALCIUM 9.3 mg/dL (8.5-10.1); CARBON DIOXIDE 29.1 mmol/L (21.0-32.0); CHLORIDE - SERUM 105 mmol/L (98-107); CHOL - HDL RATIO 6.1 ratio (2.3-4.9); CHOLESTEROL, TOTAL 135 mg/dL (0-200); GLUCOSE 110 mg/dL (74-106); HDL CHOLESTEROL 22 mg/dL (32-96); LDL CHOLESTEROL 69 mg/dL (0-100); LDL-HDL RATIO 3.1 ratio (1.5-3.5); POTASSIUM - SERUM 4.2 mmol/L (3.5-5.1); SODIUM 139 mmol/L (136-145); TRIGLYCERIDE 223 mg/dL (30-200); UREA NITROGEN 20 mg/dL (7-18); eGFR NON AFRICAN AMERICAN 81 mL/min (90-120)
[2019-08-23 13:54] LABS: PLATELET COUNT 166 10x3/uL (130-400)
--- NOTE | 2019-08-23 15:15 | NUR ---
REC'D TO ROOM 2 VIA STRETCHER FROM RAIL FILLER. MONITORS ESTAB - SEE GIS ADMINISTRATOR. ALARMS ON AND C/L IN REACH.
--- NOTE | 2019-08-23 15:30 | NUR ---
R GROIN SITE C/D/I, NO S/S BLEEDING OR HEMATOMA. PT RESTING QUIETLY. PULSES WEAK PALP, EASILY DOPPLERED. ALARMS ON AND C/L IN REACH.
[2019-08-23] MEDS ORDERED: LANOXIN125 MCG PO (15:34)
--- NOTE | 2019-08-23 16:00 | NUR ---
R GROIN SITE SOFT, NO S/S BLEEDING OR HEMATOMA. HOB TO 20 DEGREES. MESSAGE LEFT WITH PT SIG OTHER - LETTING HER KNOW HE CAN GO HOME AT 1700.
--- NOTE | 2019-08-23 16:15 | NUR ---
R GROIN SITE C/D/I. HOB UP. SANDWICH TRAY PROVIDED WITH SPRITE. DENIES OTHER NEEDS. ALARMS ON AND C/L IN REACH.
--- NOTE | 2019-08-23 17:00 | NUR ---
R GROIN SITE SOFT, NO S/S BLEEDING OR HEMATOMA. PIV D/C'D INTACT, DSG APPLIED. PT ALLOWED UP TO GET DRESSED.
--- NOTE | 2019-08-23 17:15 | NUR ---
ALL D/C INSTRUCTIONS REVIEWED WITH PT AND SIG OTHER, INCLUDING MEDS, FOLLOW-UP AND RESTRICTIONS. PT UP TO BR INDEPENDENTLY, THEN D/C'D TO PRIVATE VEHICLE WITH ALL PAPERWORK AND BELONGINGS.
--- NOTE | 2019-08-24 14:49 | OP ---
PATIENT NAME: JADA STEPHENS MEDICAL RECORD: [id number] :56 LOCATION:D.CAT ADMISSION DATE: SURGEON: AZAR PHILLIPS MD DATE OF OPERATION: 08/23/2019 PROCEDURES: Right femoral artery approach. After right femoral artery was cannulated via modified Seldinger, the ISSAC catheter was placed at the level of renal arteries. Aorta runoff was performed. Abdominal aorta shows mild wall disease, no significant stenosis. No evidence of dissection, no evidence of aneurysm. Right iliac system, right common deep and superficial free of disease. Right femoral system including deep common superficial shows a mild wall disease, no flow limiting stenosis with good 3-vessel runoff. Left system: Left iliac system including common, internal, and external has mild wall disease, no significant stenosis. The right femoral system, common and deep show minimal wall disease. The left superficial femoral at the distal portion shows perhaps a 40% stenosis and are no flow obstructive with good 3-vessel runoff. IMPRESSION: No significant peripheral vascular disease with 3-vessel runoff of all vessels. TRANSINT:[id number] Voice Confirmation ID: [id number] DOCUMENT ID: [id number] AZAR PHILLIPS MD at 1449 CC: [id number] DICTATION DATE: 08/23/19 1514 COREROOM FOUNDRY LABORER: 08/23/192057 DEP CLI 08/23/[address] [address]
== END 2019-08-23 17:15 | disposition home or self-care (01) ==
LOC: D.CATH 11:43
PROVIDERS: ATTEND Internal Medicine Interventional Cardiology
DX: I70.213 Atherosclerosis of native arteries of extremities with intermittent claudication, bilateral legs (principal); I48.91 Unspecified atrial fibrillation; Z72.0 Tobacco use; I10 Essential (primary) hypertension; I25.10 Atherosclerotic heart disease of native coronary artery without angina pectoris; E78.5 Hyperlipidemia, unspecified

== ENCOUNTER → 2019-12-22 10:20 | Outpatient (CLI) | payer MEDICAID ==
[2019-08-23 13:13] VITALS: BMI 31.7
[~2019-12-22 10:20] MED LIST changes: +AMITRIPTYLINE100 MG PO; +AMPICILLIN TRI500 MG PO; +CENTRUM MEN'S1 EACH PO; +ENTRESTO 24 MG1 EACH PO; +GABAPENTIN100 MG PO; +GLUCOPHAGE500 MG PO; +LANOXIN125 MCG PO; +LIPITOR40 MG PO; +LIPITOR80 MG PO; +PLAVIX75 MG PO; +TOPROL XL50 MG PO
--- NOTE | 2019-12-26 01:27 | EC ---
PATIENT:JADA STEPHENS DATE OF SERVICE: 12/22/19 SEX: M MEDICAL RECORD: [id number] DATE OF : 56 LOCATION:DFORMERLY [facility] AGE OF PATIENT: 59 ADMISSION DATE: 12/22/19 REFERRING PHYSICIAN: INTERPRETING PHYSICIAN: AZAR PHILLIPS MD ECHOCARDIOGRAM REPORT ECHO CHARGES 4 ECHO COMPLETE Date: 12/22/19 CLINICAL DIAGNOSIS: CAD/HX OF CARDIOMYOPATHY /TR AND MR ECHOCARDIOGRAPHIC MEASUREMENTS (adult normal given) AC root (d.<3.7cm) 3.7 cm LV Septum d (<1.2 cm> 1.5 cm Valve Excursion 1.4 cm LV Septum (systole) 1.8 cm Left Atria (s.<4.0cm> 4.3 cm LVPW d(<1.2cm) 1.8 cm RV (d.<2.3cm) 4.5 cm LVPW (sytole) 2.1 cm LV diastole(<5.6CM) 5.6 cm MV E-F(>70mm/sec) cm LV systole 3.7 cm LVOT Diameter 2.0 cm MV exc.(>10mm) 1.7 cm Est.ejection fraction (50-75%) % DOPPLER: LVIT cm/sec A 25.0 cm/sec E 81.0 cm/sec LA cm/sec RVSP 14 mmHg LVOT 85 cm/sec AOP1/2T m/s Asc. Ao 112 cm/sec RVOT 63 cm/sec RA cm/sec PA 81 cm/sec AV Gradient Peak 4.99 mmHg AV Mean 2.40 mmHg AV Area 2.8 cm MV Gradient Peak 2.52 mmHg MV Mean 1.13 mmHg MV Area cm COMMENTS: Measurement Psychologist: 2 ROYAL MERCER Maintenance Worker Municipal: 3 Dr. Muhammad TAPE# PACS Pericardial Effusion N DATE OF SERVICE: Adequate 2D, color flow imaging, spectral Doppler, and M-Mode. LVH is present. LV internal dimensions are normal. LV looks mildly globally hypo with EF lower limits of normal, mildly reduced, estimated EF 45% to 55%. Aortic valve is sclerosed without stenosis by Doppler interrogation. Left atrium is mildly dilated at 4.3 cm. Mitral valve shows no prolapse. Mild MR. Right-sided chambers are grossly normal. Trace TR. ECHOCARDIOGRAM REPORT [id number] JADA STEPHENS TRANSINT:[id number] Voice Confirmation ID: [id number] DOCUMENT ID: [id number] AZAR PHILLIPS MD at 0127 CC: [id number] DICTATION DATE: 12/25/191030 PLASTICS PRODUCTION MACHINE OPERATOR: 12/25/192054 [facility] CLI 12/22/19 [id number] [place] [id number]
== END | disposition home or self-care (01) ==
LOC: D.HCCECHO 10:20
PROVIDERS: ATTEND Internal Medicine Interventional Cardiology
DX: I25.10 Atherosclerotic heart disease of native coronary artery without angina pectoris (principal)

== ENCOUNTER 2019-12-25 06:59 | Inpatient (IN) | payer MEDICAID ==
[~2019-12-25] VITALS: Ht 193 cm; Wt 107.5 kg
[~2019-12-25 06:59] MED LIST changes: -AMPICILLIN TRI500 MG PO; -GABAPENTIN100 MG PO; -GLUCOPHAGE500 MG PO
[2019-12-25] MEDS ORDERED: AMPICILLIN TRI500 MG PO (07:06)
[2019-12-25] MEDS ORDERED: GABAPENTIN100 MG PO (07:06)
[2019-12-25] MEDS ORDERED: GLUCOPHAGE500 MG PO (07:07)
[2019-12-25 07:35] LABS: HEMATOCRIT 50.3 % (42.0-54.0); HEMOGLOBIN 17.4 g/dL (13.5-17.5); MCH 33.5 pg (26.0-34.0); MCHC 34.6 g/dL (31.0-37.0); MCV 96.9 fL (80.0-100.0); NEUTROPHILS 63.4 % (40-80); PLATELET COUNT 150 10x3/uL (130-400); RBC 5.19 10x6/uL (4.20-6.10); WBC 13.9 10x3/uL (4.8-10.8)
[2019-12-25 07:55] LABS: CALC OSMOLALITY 282 mosm/kg (275-300); CALCIUM 9.6 mg/dL (8.5-10.1); CARBON DIOXIDE 31.5 mmol/L (21.0-32.0); CHLORIDE - SERUM 103 mmol/L (98-107); CREATININE - SERUM 1.1 mg/dL (0.6-1.3); GLUCOSE 97 mg/dL (74-106); POTASSIUM - SERUM 3.9 mmol/L (3.5-5.1); SODIUM 140 mmol/L (136-145); UREA NITROGEN 23 mg/dL (7-18); eGFR NON AFRICAN AMERICAN 72 mL/min (90-120)
[2019-12-25 08:12] LABS: ALBUMIN 3.6 g/dL (3.4-5.0); ALKALINE PHOSPHATASE 48 U/L (30-120); ALT (SGPT) 91 U/L (10-68); BILIRUBIN - TOTAL 0.97 mg/dL (0.2-1.3); CKMB 1.7 U/L (0.0-3.6); CREATINE KINASE 134 UL (21-232); PROTEIN - SERUM 7.2 g/dL (6.4-8.2); TROPONIN-I 0.025 ng/mL (0.000-0.060)
--- NOTE | 2019-12-25 10:01 | NUR ---
PT C/O FEELING "REAL BAD". STATES HE HAS NOT EATEN TODAY BUT DID TAKE METFORMIN WITH MORNING MEDS. POC BLOOD GLUCOSE CHECKED ET SANDWICH TRAY TO PT.
--- NOTE | 2019-12-25 11:30 | NUR ---
VANCOMYCIN STOPPED AT 1130
[2019-12-25 13:10] VITALS: BP 102/60
[2019-12-25 14:44] VITALS: BP 102/68
[2019-12-25 16:20] VITALS: BP 106/70
--- NOTE | 2019-12-25 16:30 | NUR ---
BS OBTAINED 97 MG/DL
--- NOTE | 2019-12-25 17:36 | NUR ---
RECEIVED PT TO ROOM 2108 VIA WHEELCHAIR, PT A/O X4, RESP EVEN AND NONLABORED ON RA. PT RATES PAIN LEVEL 2/10. LT AC IV SL. ORIENTED PT TO ROOM AND CALL LIGHT, WILL ASSESS PT AND START PLAN OF CARE.
[2019-12-25 17:43] VITALS: BP 136/68; BMI 28.9
--- NOTE | 2019-12-25 19:00 | NUR ---
REPORT RECEIVED, WILL CONTINUE POC. PATIENT IS AAOX4, LYING IN SEMI-FOWLERS POSITION. NO S/S OF DISTRESS OBSERVED, RR EVEN AND UNLABORED ON ROOM AIR. PATIENT DENIES NEEDS AT THIS TIME. CL IN REACH, BED LOCKED AND LOWERED. WILL CTM.
[2019-12-25 21:21] VITALS: BP 114/60
[2019-12-26 00:39] VITALS: BP 92/49
--- NOTE | 2019-12-26 05:00 | NUR ---
I have reviewed this patient and I concur with the Shift Assessment completed by the Licensed Practical Nurse today this shift.
[2019-12-26 06:27] VITALS: BP 112/62
[2019-12-26 06:39] LABS: ALBUMIN 2.7 g/dL (3.4-5.0); ALKALINE PHOSPHATASE 42 U/L (30-120); ALT (SGPT) 75 U/L (10-68); BILIRUBIN - TOTAL 0.35 mg/dL (0.2-1.3); CALC OSMOLALITY 283 mosm/kg (275-300); CALCIUM 8.2 mg/dL (8.5-10.1); CARBON DIOXIDE 28.9 mmol/L (21.0-32.0); CHLORIDE - SERUM 105 mmol/L (98-107); GLUCOSE 140 mg/dL (74-106); POTASSIUM - SERUM 3.5 mmol/L (3.5-5.1); PROTEIN - SERUM 5.4 g/dL (6.4-8.2); SODIUM 140 mmol/L (136-145); UREA NITROGEN 21 mg/dL (7-18); eGFR NON AFRICAN AMERICAN 81 mL/min (90-120)
[2019-12-26 07:14] LABS: UDS - AMPHET NEGATIVE QUAL (NEGATIVE); UDS - BARB NEGATIVE QUAL (NEGATIVE); UDS - BENZO NEGATIVE QUAL (NEGATIVE); UDS - COCAINE POSITIVE QUAL (NEGATIVE); UDS - OPIATE POSITIVE QUAL (NEGATIVE); UDS - PCP NEGATIVE QUAL (NEGATIVE); UDS - THC NEGATIVE QUAL (NEGATIVE)
[2019-12-26 08:22] VITALS: BP 124/74
[2019-12-26 08:37] LABS: HEMOGLOBIN 15.4 g/dL (13.5-17.5); LYMPHOCYTES 30.8 % (15-50); MCH 32.8 pg (26.0-34.0); MCHC 33.5 g/dL (31.0-37.0); MCV 97.9 fL (80.0-100.0); MEAN PLATELET VOLUME 13.5 fL (7.4-10.4); NEUTROPHILS 61.5 % (40-80); RDW 11.9 % (11.5-14.5)
[2019-12-26 08:38] LABS: PLATELET COUNT 118 10x3/uL (130-400); WBC 7.3 10x3/uL (4.8-10.8)
[2019-12-26 10:12] LABS: HEPATITIS C ANTIBODY >11.0 S/CO RAT (0.0-0.9)
[2019-12-26 11:57] VITALS: BP 122/73
[2019-12-26 12:33] VITALS: Ht 193 cm; Wt 107.5 kg
[2019-12-26 16:32] VITALS: BP 112/74
--- NOTE | 2019-12-26 19:00 | NUR ---
REPORT RECEIVED, WILL CONTINUE POC. PATIENT IS AAOX4, SITTING UP IN BED. NO S/S OF DISTRESS OBSERVED, RR EVEN AND UNLABORED ON ROOM AIR. SUPPLIED ICE FOR FOOT. PATIENT DENIES FURTHER NEEDS AT THIS TIME. CL IN REACH, BED LOCKED AND LOWERED. WILL CTM.
[2019-12-26 20:00] VITALS: BP 127/71
--- NOTE | 2019-12-27 05:43 | NUR ---
I have reviewed this patient and I concur with the Shift Assessment completed by the Licensed Practical Nurse today this shift.
--- NOTE | 2019-12-27 06:49 | HP ---
PATIENT: JADA STEPHENS MEDICAL RECORD: [id number] ACCOUNT: [id number] LOCATION:[address] : 56 ADMISSION DATE: 12/25/19 PCP: [facility] HISTORY AND PHYSICAL EXAMINATION REASON FOR ADMISSION: Left foot pain after stepping on a nail. HISTORY OF PRESENT ILLNESS: The patient is a 59-year-old male with history of metabolic syndrome, coronary artery disease, alcoholic cirrhosis, and ischemic cardiomyopathy, who is followed by a doctor at [facility]. He stepped on nail a few days ago and his left foot is very painful. He said it was a lobo nail. He has had gradual increase in swelling, redness and pain and now cannot ambulate because of it. He denied any fever thus far. He presented to the Emergency Room where admission was deemed necessary. His initial films of x-ray did not show evidence of foreign body or gas in his foot. He states he has not drank alcohol since his bypass surgery [id number]. He still smokes cigars. PAST MEDICAL HISTORY: Non-STEMI IA in April of 2017 with [address]-v[address] Begum in [place]; alcoholic cirrhosis, alcoholism, currently in remission; nicotine abuse, active; history of ischemic cardiomyopathy with EF of 20% in 2018, had a recent echo that is pending; hypertension; left ventricular hypertrophy; biatrial enlargement; chronic atrial fibrillation; mild pulmonary hypertension; chronic hepatitis C; history of illicit drug use; hyperlipidemia; history of minimal ascites. SURGICAL HISTORY: He had atrial ablation in April of 2017; CABG times 5 grafts in April of [address] Sohan Begum; history of dental caries; COPD, on home oxygen. FAMILY HISTORY: One parent had cancer of unknown type. One sibling with hypertension. SOCIAL HISTORY: He has been a 50 year smoker of cigars. He has not had a beer or alcohol he says in several years. Used to have illicit drug use that he does not currently. HOME MEDICATIONS: Multiple vitamin, Centrum Silver 1 daily, Elavil 100 mg at bedtime, Entresto 24 one b.i.d., Toprol-XL 50 mg a day, Lanoxin 0.125 mg at noon daily, Neurontin 100 mg t.i.d., ampicillin 500 t.i.d., metformin 500 b.i.d. p.c., aspirin 81 mg a day. ALLERGIES: None. REVIEW OF SYSTEMS: CONSTITUTIONAL: No fever or fatigue. HEENT: No visual change, sinus congestion or sore throat. Has poor dentition. RESPIRATORY: No severe cough recently. Uses home O2. CARDIAC: No exertional rest chest pain, claudication or edema. GASTROINTESTINAL: No nausea, vomiting, change in stools or blood per rectum. GENITOURINARY: Nocturia once nightly. ENDOCRINE: Denies polyuria, polydipsia, heat or cold intolerance. NEUROLOGIC: No history of stroke, TIA, vascular headaches, or seizures. PSYCHIATRIC: Denies depressed mood. PHYSICAL EXAMINATION: HISTORY AND PHYSICAL [id number] JADA STEPHENS VITAL SIGNS: Temperature 97.2 Fahrenheit, pulse 84 and regular, respirations are 18, blood pressure 130/67 with a sat 99% on room air. HEENT: Normocephalic. Eyes are clear. Pupils are reactive. NECK: Supple. CHEST: Distant breath sounds without wheeze or rales. HEART: Irregular rate without gallop. ABDOMEN: Soft, nontender. No organomegaly appreciated. GENITOURINARY: Deferred. EXTREMITIES: He has 2+ pretibial edema bilaterally below the knees. His left foot is erythematous, swollen. He has a puncture wound that is healing on plantar aspect of his left foot and from the second and third metatarsal head. It does vidhi. No pus is noted. NEUROLOGIC: Grossly intact. LABORATORY DATA: White count is 13.9 thousand with H&H of 17 and 50 respectively. Chemistry: BUN is 23, creatinine 1.1, glucose 119 nonfasting. AST and ALT are 40 and 91 respectively. Cardiac enzymes are negative. IMAGING: Imaging of the foot shows no gas or foreign body. ASSESSMENT: 1. Cellulitis, left lower extremity due to puncture wound. 2. Metabolic syndrome. 3. Alcoholic cirrhosis. 4. History of hepatitis C, in remission. 5. Chronic obstructive pulmonary disease. 6. Coronary artery disease. 7. Nicotine abuse. 8. Alcoholism, currently in remission, he states. PLAN: Urine drug screen today. We will place on IV antibiotics. Blood cultures. Update tetanus if indicated. Monitor for DTs. TRANSINT:[id number] Voice Confirmation ID: [id number] DOCUMENT ID: [id number] MARI OALBERTO JONES MD at 0649 CC: [id number] DICTATION DATE: 12/25/19 1329 MOTOR VEHICLE TECHNICIAN: 12/25/191918 ADM IN [facility] [address] [id number]
--- NOTE | 2019-12-27 07:30 | NUR ---
PT SITTING UP IN BED, RR EVEN BUT LABORED ON RA. STATES HE HAD JUST GOTTEN UP TO SIDE OF BED. CALL LIGHT WITHIN REACH. BED IN LOWEST POSITION. WILL CONTINUE TO MONITOR.
[2019-12-27 09:00] VITALS: BP 118/68
[2019-12-27 11:00] VITALS: BP 102/63
[2019-12-27 15:00] VITALS: BP 135/74
--- NOTE | 2019-12-27 17:51 | NUR ---
I have reviewed this patient and I concur with the Shift Assessment completed by the Licensed Practical Nurse today this shift.
--- NOTE | 2019-12-27 19:00 | NUR ---
REPORT RECEIVED, WILL CONTINUE POC. PATIENT IS AAOX4, LYING IN BED. NO S/S OF DISTRESS OBSERVED, RR EVEN AND UNLABORED ON ROOM AIR. PATIENT DENIES NEEDS AT THIS TIME. CL IN REACH, BED LOCKED AND LOWERED. WILL CTM.
[2019-12-27 20:00] VITALS: BP 139/92
--- NOTE | 2019-12-27 20:50 | NUR ---
PATIENT TEMP 101.2 ADMINISTERED PRN TYLENOL WILL REASSESS. ADMINISTERED HS MEDS PER ORDERS.
[2019-12-28 04:00] VITALS: BP 117/72
[2019-12-28 08:30] VITALS: BP 131/75
--- NOTE | 2019-12-28 11:24 | NUR ---
Nutrition Follow-up: Eating well. Ate 100% of breakfast this AM. Diet: Diabetic Wt: 237# (12/25) Labs noted: Glu 96 Meds noted: Glucophage, electrolyte protocol -Monitor wt; noted daily wts ordered. - following.
[2019-12-28 12:00] VITALS: BP 109/70
--- NOTE | 2019-12-28 14:22 | NUR ---
I have reviewed this patient and I concur with the Shift Assessment completed by the Licensed Practical Nurse today this shift.
--- NOTE | 2019-12-28 19:25 | NUR ---
PATIENT IS RESTING IN BED. HE WANTS SOMETHING FOR PAIN, BUT DOES NOT HAVE ANYTHING DUE. HE WANTED A MASK, SO HE COULD AMBULATE IN THE [place] WITH A WALKER. HE DID NOT AMBULATE IN THE [place]. HIS LEFT KNEE IS SWOLLEN. HE IS RECEIVING ANTIBIOTICS FOR THE CELLULITIS AND KNEE SWELLING.
[2019-12-28 20:00] VITALS: BP 149/90
[2019-12-29 04:00] VITALS: BP 106/63
--- NOTE | 2019-12-29 04:33 | NUR ---
PATIENT IS SLEEPING COMFORTABLY IN BED. HE HAS RECEIVED ABX THROUGH OUT NIGHT. HE IS ON ROOM AIR, AND NO TELEMETRY ON. HE HAS NO COMPLAINTS'S AT THIS TIME.
[2019-12-29 05:08] LABS: HEMATOCRIT 48.5 % (42.0-54.0); HEMOGLOBIN 16.4 g/dL (13.5-17.5); LYMPHOCYTES 31.7 % (15-50); MCH 32.3 pg (26.0-34.0); MCHC 33.8 g/dL (31.0-37.0); MCV 95.7 fL (80.0-100.0); MEAN PLATELET VOLUME 11.1 fL (7.4-10.4); NEUTROPHILS 60.2 % (40-80); PLATELET COUNT 112 10x3/uL (130-400); RBC 5.07 10x6/uL (4.20-6.10); WBC 7.7 10x3/uL (4.8-10.8)
[2019-12-29 05:10] LABS: CALC OSMOLALITY 275 mosm/kg (275-300); CALCIUM 8.5 mg/dL (8.5-10.1); CARBON DIOXIDE 27.8 mmol/L (21.0-32.0); CHLORIDE - SERUM 104 mmol/L (98-107); GLUCOSE 103 mg/dL (74-106); POTASSIUM - SERUM 3.9 mmol/L (3.5-5.1); SODIUM 137 mmol/L (136-145); UREA NITROGEN 17 mg/dL (7-18); eGFR NON AFRICAN AMERICAN 81 mL/min (90-120)
[2019-12-29 06:14] LABS: ERYTHROCYTE SEDIMENTATION RATE 14 mm/hr (0-20)
[2019-12-29 07:00] VITALS: BP 149/90
[2019-12-29] MEDS ORDERED: BACTRIM DS TAB1 EAC1 PO (07:01)
--- NOTE | 2019-12-29 09:10 | MORECARE ---
CASE MANAGEMENT DISCHARGE SUMMARY PATIENT: JADA STEPHENS UNIT: [id number] ADM DATE: 12/25/19 AGE: 59 : 56 SEX: M ROOM/BED: D.2105 AUTHOR: GEN,DOC PHYSICIAN: REFERRING PHYSICIAN: MARIO ALBERTO JONES MD DATE OF SERVICE: 12/29/19 Discharge Plan Patient Name: JADA STEPHENS Facility: [facility]:[place] : 1960 Planned Disposition: Home Anticipated Discharge Date: 12/29/19 Discharge Date: Expected LOS: 4 Initial Reviewer: [email or web address] Initial Review Date: 12/25/2019 Generated: 12/29/19 10:10 am DCP- Discharge Planning Updated by [email or web address]: Celeste Schwarz on 12/29/19 8:[address] CM met with patient to discuss initial discharge planning. Patient is in agreement to proceed with the assessment. Patient reports that he lives at home independently with his GF of 22 years. Patient is alert/oriented. Stairs/steps: 1. PCP: Dr.Sullivan YelloYello.Pharmacy: [facility]. Patient states he has been able to obtain all of his prescribed medications. HHS: No. DME: Walker, cane, home/portable O2. Patient gives permission to speak with family members/care givers. Emergency contact: Merari Marques () [phone]. Patient is Independent with all ADL's, medication management EXECUTIVE OFFICE MANAGER. CM discussed the availability of HH, Rehab, SNF, OP Therapy, DME services. Patient denies the need for additional services at this time and feels safe returning to previous environment. Patient denies hospitalization within the past 30 days. Patient denies the use of community resources EXECUTIVE OFFICE MANAGER. Transportation at time of discharge: Merari. DCPIA - Discharge Planning Initial Assessment Updated by [email or web address]: Celeste Schwarz on 12/29/19 9:06 am * Is the patient Alert and Oriented? Yes * How many steps to enter\exit or inside your home? * PCP Dr. Johnson YelloYello * Pharmacy [facility] * Preadmission Environment Home with Family * ADLs Independent * Equipment Cane Walker * Other Equipment Home/portable O2 * List name and contact numbers for known caregivers / representatives who currently or will assist patient after discharge: Merari Marques () [phone] * Verbal permission to speak to the caregivers and representatives has been obtained from the patient. Yes * Community resources currently utilized None * Additional services required to return to the preadmission environment? No * Can the patient safely return to the preadmission environment? Yes * Has this patient been hospitalized within the prior 30 days at any hospital? No Patient Name: JADA STEPHENS Page [id number] at 0910 All edits/amendments must be made on the electronic document DICTATION DATE: 12/29/19909 MUTTON PUNCHER: CARLOS 12/29/19909 RPT#: [id number] DC DATE: STATUS: ADM IN [facility] [address] [place] [address] END OF REPORT
--- NOTE | 2019-12-29 11:11 | NUR ---
0700 AWAKE ALERT ORIENTED ASSESSMENT COMPLETE DR JONES AT BEDSIDE WITH DSCHARGE ORDERS WRITTEN
--- NOTE | 2019-12-29 11:13 | NUR ---
0900 IV SL REMOVED FROM LEFT AC SITE SATISFACTORY
--- NOTE | 2019-12-29 11:14 | NUR ---
1038 WRITTEN AND VERBAL DISCHARGE INSTRUCTIONS GIVEN VERBALIZED UNDERSTANDING WHEELCHAIR USED TO TRANSPORT PT OUT CAR
--- NOTE | 2019-12-30 08:36 | MORECARE ---
CASE MANAGEMENT DISCHARGE SUMMARY PATIENT: JADA STEPHENS UNIT: [id number] ADM DATE: 12/25/19 AGE: 59 : 56 SEX: M ROOM/BED: D.2102 AUTHOR: GEN,DOC PHYSICIAN: REFERRING PHYSICIAN: MARIO ALBERTO JONES MD DATE OF SERVICE: 12/30/19 Discharge Plan Patient Name: JADA STEPHENS Facility: [facility]:[place] : 1960 Planned Disposition: Home Anticipated Discharge Date: 12/29/19 Discharge Date: 12/29/2019 Expected LOS: 4 Initial Reviewer: [id number] Initial Review Date: 12/25/2019 Generated: 12/30/19 9:35 am DCP- Discharge Planning Updated by [email or web address]: Celeste Schwarz on 12/29/19 8:[address] CM met with patient to discuss initial discharge planning. Patient is in agreement to proceed with the assessment. Patient reports that he lives at home independently with his GF of 22 years. Patient is alert/oriented. Stairs/steps: 1. PCP: Dr.Sullivan [email or web address].Pharmacy: [facility]. Patient states he has been able to obtain all of his prescribed medications. HHS: No. DME: Walker, cane, home/portable O2. Patient gives permission to speak with family members/care givers. Emergency contact: Merari Marques () [phone]. Patient is Independent with all ADL's, medication management INCIDENT COORDINATOR. CM discussed the availability of HH, Rehab, SNF, OP Therapy, DME services. Patient denies the need for additional services at this time and feels safe returning to previous environment. Patient denies hospitalization within the past 30 days. Patient denies the use of community resources INCIDENT COORDINATOR. Transportation at time of discharge: Merari. DCPIA - Discharge Planning Initial Assessment Updated by [email or web address]: Celeste Schwarz on 12/29/19 9:06 am * Is the patient Alert and Oriented? Yes * How many steps to enter\exit or inside your home? * PCP Dr. Johnson [email or web address] * Pharmacy [facility] * Preadmission Environment Home with Family * ADLs Independent * Equipment Cane Walker * Other Equipment Home/portable O2 * List name and contact numbers for known caregivers / representatives who currently or will assist patient after discharge: Merari Marques () [phone] * Verbal permission to speak to the caregivers and representatives has been obtained from the patient. Yes * Community resources currently utilized None * Additional services required to return to the preadmission environment? No * Can the patient safely return to the preadmission environment? Yes * Has this patient been hospitalized within the prior 30 days at any hospital? No Last DP export: 12/29/19 8:10 a Patient Name: JADA STEPHENS Page [phone] at 0836 All edits/amendments must be made on the electronic document DICTATION DATE: 12/30/19834 WELFARE ELIGIBILITY INTERVIEWER: CARLOS 12/30/19834 RPT#: [id number] DC DATE:12/29/19 STATUS: DIS IN [facility] [address] [place] [address] END OF REPORT
== END 2019-12-29 12:36 | disposition home or self-care (01) | DRG 638 ==
LOC: D.ER 06:59 → D.M2 09:25
PROVIDERS: Family Medicine; ADMIT Family Medicine; ATTEND Family Medicine
DX: E11.628 Type 2 diabetes mellitus with other skin complications (principal); L03.116 Cellulitis of left lower limb; E88.81 Metabolic syndrome and other insulin resistance; K70.30 Alcoholic cirrhosis of liver without ascites; F10.21 Alcohol dependence, in remission; I25.10 Atherosclerotic heart disease of native coronary artery without angina pectoris; J44.9 Chronic obstructive pulmonary disease, unspecified